=== PATIENT | male | born 1990 | race Native Hawaiian/Other Pacific Islander ===

== ENCOUNTER 2017-07-07 15:38 | Emergency (ER) | payer OTHER ==
[~2017-07-07] VITALS: Ht 182.9 cm; Wt 77.1 kg
[2017-07-07 15:40] VITALS: TEMP 99.2
[2017-07-07 16:23] LABS: POTASSIUM 3.5 mmol/L (3.6-5.2)
[2017-07-07 16:25] LABS: PLATELET COUNT 327 K/uL (142-355)
[2017-07-07 16:50] VITALS: BP 138/71
== END 2017-07-07 17:16 | disposition home or self-care (01) ==
LOC: ED 15:38
DX: J02.0 Streptococcal pharyngitis (principal); J35.1 Hypertrophy of tonsils
CPT/HCPCS: 36415; 80053; 85027; 87804; 87880; 96365; 99284; J0696

== ENCOUNTER 2020-04-06 08:49 | Emergency (ER) | payer OTHER ==
[~2020-04-06] VITALS: Ht 182.9 cm; Wt 90.7 kg
[2020-04-06 09:02] VITALS: BP 142/89; TEMP 99.1
== END 2020-04-06 10:00 | disposition home or self-care (01) ==
LOC: ED 08:49
DX: J06.9 Acute upper respiratory infection, unspecified (principal); J02.9 Acute pharyngitis, unspecified; F17.210 Nicotine dependence, cigarettes, uncomplicated
CPT/HCPCS: 87651; 96372; 99283; J0696

== ENCOUNTER 2021-10-27 10:25 | Emergency (ER) | payer OTHER ==
[~2021-10-27] VITALS: Ht 182.9 cm; Wt 104.3 kg
[2021-10-27 10:32] VITALS: BP 124/83; TEMP 100.6
== END 2021-10-27 11:43 | disposition home or self-care (01) ==
LOC: ED 10:25
DX: J02.0 Streptococcal pharyngitis (principal); R50.9 Fever, unspecified
CPT/HCPCS: 87651; 96372; 99283; J0696; J1885